=== PATIENT | female | born 1960 | race American Indian/Alaskan Native ===

== ENCOUNTER 2021-12-22 09:57 | Day surgery (SDC) | payer OTHER ==
[~2021-12-22 09:57] MED LIST: ceFAZolin/Water 2 GM/20 ML 2 GM/20 ML SYRINGE IV NR
[2021-12-22] MEDS ORDERED: LACTATED RINGERS 1,000 ML ONE (10:52)
[2021-12-22] MEDS ORDERED: LACTATED RINGERS 1,000 ML IV ONE (11:00)
[2021-12-22 11:30] LABS: Hematocrit 32.9 % (30.3-42.9); Hemoglobin 10.4 gm/dl (10.1-14.3); Mean Corpuscular HGB Conc 32 % (30-34); Mean Corpuscular Volume 76 fl (79-97); Platelet Count 332 K/mm3 (140-440); Red Blood Count 4.36 M/mm3 (3.65-5.03)
[2021-12-22 11:54] LABS: BUN/Creatinine Ratio 12; Blood Urea Nitrogen 13 mg/dL (7-17); Calcium 9.8 mg/dL (8.4-10.2); Hemolysis Index 1
--- NOTE | 2021-12-22 12:10 | Event Note ---
Date: 12/22/21 Patient's right first toe eschar has fallen off and toe is well healed without any exposed bone. The right third toe has no evidence of drainage and the surrounding erythema had resolved. The toe is beginning to heal with only an eschar involving the dorsal aspect of the DP/MP joints. Have advised the patient to continue local wound care with Betadine to the eschar only, not to remove the eschar, and will prescribe Clindamycin 600 mg Q8 hours x 7 days. I will have her follow up in the office for reevaluation in 2 weeks. Will cancel the operation for today. The patient expressed understanding and agrees with the plan.
[2021-12-22 13:10] VITALS: BP 171/100
== END 2021-12-22 09:58 | disposition home or self-care (01) ==
LOC: OR 09:57
PROVIDERS: ATTEND Surgery Vascular Surgery
DX: I70.213 Atherosclerosis of native arteries of extremities with intermittent claudication, bilateral legs (principal); E78.00 Pure hypercholesterolemia, unspecified; I10 Essential (primary) hypertension; Z53.8 Procedure and treatment not carried out for other reasons; D64.9 Anemia, unspecified; Z98.891 History of uterine scar from previous surgery; Z91.81 History of falling; Z98.890 Other specified postprocedural states; Z86.73 Personal history of transient ischemic attack (TIA), and cerebral infarction without residual deficits
CPT/HCPCS: 36415; 80048; 82962; 85027; J7120